=== PATIENT | male | born 1970 | race Caucasian/White ===

== ENCOUNTER → 2017-12-05 17:00 | Outpatient (CLI) | payer MEDICARE ==
[2017-12-05 19:50] LABS: ALT (SGPT) 37 U/L (10-68); CALC OSMOLALITY 280 mosm/kg (275-300); CALCIUM 9.4 mg/dL (8.5-10.1); CARBON DIOXIDE 27.2 mmol/L (21.0-32.0); CHLORIDE - SERUM 104 mmol/L (98-107); CHOL - HDL RATIO 5.7 ratio (2.3-4.9); CHOLESTEROL, TOTAL 171 mg/dL (0-200); CREATINE KINASE 115 UL (21-232); GLUCOSE 97 mg/dL (74-106); HDL CHOLESTEROL 30 mg/dL (32-96); LDL CHOLESTEROL 106 mg/dL (0-100); LDL-HDL RATIO 3.5 ratio (1.5-3.5); POTASSIUM - SERUM 4.7 mmol/L (3.5-5.1); SODIUM 140 mmol/L (136-145); TRIGLYCERIDE 179 mg/dL (30-200); UREA NITROGEN 18 mg/dL (7-18); eGFR NON AFRICAN AMERICAN 85 mL/min (90-120)
== END | disposition home or self-care (01) ==
LOC: D.LABREF 17:00
PROVIDERS: Internal Medicine Cardiovascular Disease
DX: R00.2 Palpitations (principal); E78.5 Hyperlipidemia, unspecified

== ENCOUNTER → 2017-12-08 10:08 | Outpatient (CLI) | payer MEDICARE ==
--- NOTE | ~2017-12-08 | EC ---
PATIENT:AWILDA ESTRADA DATE OF SERVICE: 12/08/17 SEX: M MEDICAL RECORD: [id number] DATE OF : [birth year] LOCATION[facility] AGE OF PATIENT: 47 ADMISSION DATE: 12/08/17 REFERRING PHYSICIAN: INTERPRETING PHYSICIAN: DANA ROMERO MD ECHOCARDIOGRAM REPORT ECHO CHARGES 4 ECHO COMPLETE Date: 12/08 CLINICAL DIAGNOSIS: SOB/CABRERA ECHOCARDIOGRAPHIC MEASUREMENTS (adult normal given) AC root (d.<3.7cm) 3.7 cm LV Septum d (<1.2 cm> 1.7 cm Valve Excursion 2.0 cm LV Septum (systole) 1.8 cm Left Atria (s.<4.0cm> 3.8 cm LVPW d(<1.2cm) 1.6 cm RV (d.<2.3cm) 4.1 cm LVPW (sytole) 2.0 cm LV diastole(<5.6CM) 4.2 cm MV E-F(>70mm/sec) cm LV systole 2.1 cm LVOT Diameter 2.4 cm MV exc.(>10mm) 1.7 cm Est.ejection fraction (50-75%) % DOPPLER: LVIT cm/sec A 74.0 cm/sec E 66.0 cm/sec LA cm/sec RVSP 25 mmHg LVOT 102 cm/sec AOP1/2T m/s Asc. Ao 127 cm/sec RVOT 87 cm/sec RA cm/sec PA 179 cm/sec AV Gradient Peak 6.42 mmHg AV Mean 3.07 mmHg AV Area 47.3 cm MV Gradient Peak 3.88 mmHg MV Mean 1.29 mmHg MV Area cm COMMENTS: [place]: Forrest DIAZ Floor Installer: Michelle Romero TAPE# PACS Pericardial Effusion N DATE OF SERVICE: PROCEDURE: Transthoracic echocardiogram. FINDINGS: 1. The patient has left ventricular hypertrophy. Inflow characteristics consistent with diastolic dysfunction. Ejection fraction 65%. 2. The left atrium is normal. 3. The aortic valve is normal. 4. The right ventricle is mildly dilated. ECHOCARDIOGRAM REPORT [id number] AWILDA ESTRADA 5. The mitral valve is normal. The tricuspid valve is normal. Pericardium is normal. Pulmonic valve is normal and right atrium is mildly dilated. RVSP is normal. CONCLUSION: The patient has evidence of mild hypertensive heart disease with preserved LV systolic function. TRANSINT:[id number] Voice Confirmation ID: [id number] DOCUMENT ID: [id number] DANA ROMERO MD at 1030 CC: [id number] DICTATION DATE: 12/09/17 1142 DIRECTOR OF EXHIBIT DEVELOPMENT: 12/09/17 1215 DEP CLI 12/08/17 [place] [id number] [place] [id number]
== END | disposition home or self-care (01) ==
LOC: D.ECHO 09:45 → D.RT 09:45 → D.ECHO 10:08
DX: R07.9 Chest pain, unspecified (principal); R06.02 Shortness of breath; R06.00 Dyspnea, unspecified